=== PATIENT | female | born 1995 | race Caucasian/White ===

== ENCOUNTER 2016-11-07 11:10 | Outpatient (CLI) | payer BC ==
[~2016-11-07] VITALS: Ht 160 cm; Wt 92.9 kg
[~2016-11-07 11:10] MED LIST: PREN-39 PO
[2016-11-07 11:34] VITALS: Ht 160 cm; Wt 92.9 kg
--- NOTE | 2016-11-07 12:32 | RADRPT ---
PROCEDURE: US OB biophysical profile. CLINICAL INDICATION: decreased movements, post dates TECHNIQUE: Multiple sonographic images of the pelvis were obtained. The images were reviewed on a PACS workstation. COMPARISON: No prior studies are available for comparison. FINDINGS: There is a single viable intrauterine gestation. Cardiac activity is present with 137 beats per min diane. There is a vertex presentation. The placenta is anterior. There is no evidence of placental abruption. There is a normal amount of amniotic fluid with an MINAL = 12.9 cm. Biophysical profile: movement 2/2 tone 2/2. breathing 2/2 MINAL 2/2 Total 09/26 RPTAT: AA . IMPRESSION: Normal biophysical profile. . .Angel Watson MD, Date Time Electronically viewed and signed by .Angel Watson MD, MD on 11/07/2016 12:31 .S/
--- NOTE | 2016-11-07 12:33 | RADRPT ---
PROCEDURE: US OB. CLINICAL INDICATION: Size and dates , post dates TECHNIQUE: Multiple sonographic images of the pelvis and gravid uterus were obtained. The images were reviewed on a PACS workstation. COMPARISON: No prior studies are available for comparison. FINDINGS: There is a single viable intrauterine gestation. Cardiac activity is present with 144 beats per min diane. There is a vertex presentation. The placenta is anterior. There is no evidence of placental abruption. There is a normal amount of amniotic fluid with an MINAL = 12.9 cm. Measurements were made in order to determine age. The results are as follows: BPD =8.6 cm HC =32.6 cm AC =35.2 cm FL =7.3 cm Estimated gestational age of approximately 37 weeks and 0 days based on ultrasound measurements. Clinical age: 40 weeks and 1 day. The estimated date of delivery is 11/28/16, based on ultrasound measurements. The EFW = 3320 g, 24.2%, based on LMP age. RPTAT: AA IMPRESSION: Single viable intrauterine gestation of approximately 37 weeks and 0 days based on ultrasound measu rements. .Angel Watson MD, Date Time Electronically viewed and signed by .Angel Watson MD, on 11/07/2016 12:33 .S/
--- NOTE | 2016-11-07 13:14 | PN ---
Triage Information Date/Time Reason for visit: post date Weeks of Gestation 40 weeks and 1 day /Para Diabetes: none Hypertention: none Objective Heart Rate: 120's Heart Rate Comments Category I Exam Cervix closed Results/Medications Imaging Results [facility] [place] 09/26 Disposition: Discharge Assessment/Plan Antepartum Testing reassuring D/C home Follow up on 11/10/2016. CHADD DENT MD Nov 07, 2016 13:14
== END 2016-11-07 13:19 | disposition home or self-care (01) ==
LOC: L-D 11:10 → OBT 11:10
PROVIDERS: ATTEND Obstetrics & Gynecology
DX: O48.0 Post-term pregnancy (principal); Z3A.40 40 weeks gestation of pregnancy
CPT/HCPCS: 76815; 76818; G0463

== ENCOUNTER 2016-11-11 08:04 | Inpatient (IN) | payer BC ==
[~2016-11-11] VITALS: Ht 157.5 cm; Wt 92.5 kg
[2016-11-11 08:26] VITALS: BP 112/71; PULSE 103; RESP 18; Ht 157.5 cm; Wt 92.5 kg
--- NOTE | 2016-11-11 08:44 | TRIAGE ---
OB Triage Datetime Report Generated by CPN: 11/11/2016 08:43 Datetime: 11/11/2016 08:37 Vaginal Exam Dilatation (cms): 1.0 Effacement (%): 50 Station: -2 Exam By: naun Vaginal Bleeding: Normal Show Pool: Positive Nitrazine: Positive Cervix, Consistency: Moderate Cervix, Position: Midposition Datetime: 11/11/2016 08:24 Assessment Type: Triage Maternal Assessment Level of Consciousness: Fully Conscious DTR's/Clonus: DTRs 2+; No Clonus Headache: Denies Blurred Vision: No Respiratory Effort: Unlabored; Regular Rhythm; Equal Expansion Breath Sounds, Left: Clear and Equal Breath Sounds, Right: Clear and Equal Nausea/Vomiting: Denies RUQ Epigastric Pain: Denies Lower Extremities Edema: None Degree: None Upper Extremities Edema: None Degree: None Facial Edema: None Fall Risk Assessment History of Falling: (0) No Secondary Diagnosis: (0) No Ambulatory Aid: (0) Bedrest/Nurse Assist IV Therapy: (0) No Gait: (0) Normal/Bedrest/Immobile Mental Status: (0) Oriented to Own Ability Fall Score: 0 Fall Risk Score Definition: No Risk: No action required Datetime: 11/11/2016 08:23 Time of Arrival: 11/11/2016 07:57 EGA: 40.5 Arrived By: Ambulatory Arrived From: Home Movement: Present Contractions: Denies/Absent Rupture of Membranes: Unsure Vaginal Bleeding: Scant Vaginal Discharge: Denies Recent Sexual Intercouse: Denies Abdominal Trauma: Not Applicable Patient Complaints: None Time Provider Notified: 11/11/2016 08:40 Provider Notified: DELSHAD Initial Plan: SVE, Datetime: 11/11/2016 08:20 Monitor Mode: External Monitor Mode: External US Datetime: 11/07/2016 13:06 Stage of : OB Triage Datetime: 11/07/2016 12:56 Labor Evaluation Frequency: 0 Monitor Mode: External Resting Tone Roy: Relaxed Heart Rate FHR Baseline Rate: 135 Monitor Mode: External US Variability: Moderate 6-25 bpm Accelerations: 10X10 Decelerations: None Category: Category I Pain Assessment Pain Scale: 0 Pain Presence: None/Denies Pain Type: N/A Pain Goal: 3 Pain Relief Measures: Comfort Measures Datetime: 11/07/2016 11:36 Stage of : OB Triage Assessment Type: Triage Maternal Assessment Level of Consciousness: Fully Conscious DTR's/Clonus: DTRs 2+; No Clonus Headache: Denies Blurred Vision: No Respiratory Effort: Unlabored; Regular Rhythm; Equal Expansion Breath Sounds, Left: Clear and Equal Breath Sounds, Right: Clear and Equal Nausea/Vomiting: Denies RUQ Epigastric Pain: Denies Facial Edema: None Temperature Route: Axillary Fall Risk Assessment History of Falling: (0) No Secondary Diagnosis: (0) No Ambulatory Aid: (0) Bedrest/Nurse Assist IV Therapy: (0) No Gait: (0) Normal/Bedrest/Immobile Mental Status: (0) Oriented to Own Ability Fall Score: 0 Fall Risk Score Definition: No Risk: No action required Labor Evaluation Frequency: 0 Monitor Mode: External Pattern: Normal: <= 5 Contractions in 10 Minutes Resting Tone Roy: Relaxed Heart Rate FHR Baseline Rate: 145 Monitor Mode: External US Variability: Moderate 6-25 bpm Decelerations: None Category: Category I Pain Assessment Pain Scale: 0 Pain Presence: None/Denies Pain Type: N/A Datetime: 11/07/2016 11:35 Time of Arrival: 11/07/2016 11:00 EGA: 40.1 Arrived By: Ambulatory Arrived From: Home Chief Complaint: sent in from office for post dates, bpp/efw Movement: Present Contractions: Denies/Absent Rupture of Membranes: Denies Vaginal Bleeding: None Vaginal Discharge: Denies Recent Sexual Intercouse: Denies Abdominal Trauma: Not Applicable Patient Complaints: None Time Provider Notified: 11/07/2016 13:06 Provider Notified: FILIPE Initial Plan: monitor, bpp/efw
[2016-11-11] MEDS ORDERED: LACTATED RINGER'S 1,000 ML IV PRN (09:51)
[2016-11-11] MEDS: LACTATED RINGER'S 1,000 ML IV SCH ×3 (09:55→20:10)
[2016-11-11] MEDS ORDERED: OXYTOCIN 30 UNITS/LR 500 ML IV SCH (10:00)
[2016-11-11] MEDS ORDERED: IBUPROFEN 600 MG TAB PO PRN (10:00)
[2016-11-11] MEDS ORDERED: LIDOCAINE 1% (MPF) 30 ML INJ INJ PRN (10:00)
[2016-11-11] MEDS ORDERED: OXYTOCIN 30 UNITS/LR 500 ML IV PRN (10:00)
[2016-11-11] MEDS ORDERED: CARBOPROST 250 MCG INJ IM PRN (10:00)
[2016-11-11] MEDS ORDERED: MISOPROSTOL 200 MCG TAB PR PRN (10:00)
[2016-11-11] MEDS ORDERED: BUTORPHANOL 2 MG INJ IV PRN (10:00)
[2016-11-11] MEDS ORDERED: METHYLERGONOVINE 0.2 MG INJ IM PRN (10:00)
[2016-11-11 10:04] LABS: BASOPHILS % 0.2 % (0.0-2.0); EOSINOPHILS # 0.1 10^3/ul (0.0-0.5); EOSINOPHILS % 0.7 % (0.0-7.0); HEMATOCRIT 40.1 % (37.0-47.0); HEMOGLOBIN 13.7 g/dl (12.0-16.0); LYMPHOCYTES # 1.7 10^3/ul (0.8-2.9); MEAN CORPUSCULAR HEMOGLOBIN 29.5 pg (29.0-33.0); MEAN CORPUSCULAR HGB CONC 34.2 g/dl (32.0-37.0); MEAN CORPUSCULAR VOLUME 86.2 fl (82.0-101.0); MONOCYTE # 0.5 10^3/ul (0.3-0.9); MONOCYTES % 5.7 % (0.0-11.0); NEUTROPHILS % 72.9 % (39.0-77.0); PLATELET COUNT 196 10^3/UL (140-415); RED BLOOD COUNT 4.65 10^6/ul (4.20-5.40); RED CELL DISTRIBUTION WIDTH 13.2 % (11.5-14.5); WHITE BLOOD COUNT 8.3 10^3/ul (4.8-10.8)
[2016-11-11 10:15] LABS: INR 0.86; PARTIAL THROMBOPLASTIN TIME 27.6 Sec (25.0-35.0); PROTIME 11.7 Sec (12.2-14.2); PT RATIO 0.9
--- NOTE | 2016-11-11 10:56 | RADRPT ---
PROCEDURE: Obstetrical ultrasound CLINICAL INDICATION: . OB ultrasound with fluid volume assessment. TECHNIQUE: Obstetrical ultrasound of the uterus for fluid volume assessment. Transabdomi nal imaging of the uterus was performed. COMPARISON: 11/07/2016 FINDINGS: Presentation: Cephalic Partially visualized placenta: anterior heart rate: 124 Beats per minute. IMPRESSION: New oligohydramnios with amniotic fluid index 4.95 cm. Previously 12.87 cm RPTAT: AADD .Deng Jara MD, Date Time Electronically viewed and signed by .Deng Jara MD, on 11/11/2016 10:56 .B/
[2016-11-11] MEDS ORDERED: NALOXONE (0.4 MG/ML) INJ IV PRN (18:30)
[2016-11-11] MEDS ORDERED: DIPHENHYDRAMINE 50 MG INJ IV PRN (18:30)
[2016-11-11] MEDS ORDERED: ONDANSETRON 4 MG INJ IV PRN (18:30)
[2016-11-11] MEDS ORDERED: FENTAnyl 2MCG/ML-ROPIV 0.2% 100 ML ONE (18:33)
[2016-11-11] MEDS: FENTAnyl 2MCG/ML-ROPIV 0.2% 100 ML BAG EPI SCH (19:02)
[2016-11-12] MEDS: LACTATED RINGER'S 1,000 ML IV SCH ×2 (03:32→06:22)
[2016-11-12] MEDS: FENTAnyl 2MCG/ML-ROPIV 0.2% 100 ML BAG EPI SCH (04:59)
--- NOTE | 2016-11-12 10:54 | HP ---
Date/Time of Note Date/Time of Note DATE: 11/12/16 TIME: 10:51 OB - History Hx of Present Chief Complaint: leakage of fluid and contractions Estimated Due Date: Nov 06, 2016 : 2 Para: 1 Spontaneous : 0 Therapeutic : 0 Care: Good Care Ultrasounds: Normal mid trimester US Obstetrical Complications: None Medical Complications: None Past Family/Social History * Past Medical, Surgical, Family and Obstetric Histories reviewed from chart. GBS Status: Negative OB Admission Exam Vital Signs Vital Signs Vital Signs Date Time Temp Pulse Resp B/P Pulse Ox O2 Delivery O2 Flow Rate FiO2 11/11/16 08:26 98.4 103 18 112/71 98 Room Air Physical Exam HEENT: WNL Heart: Rhythm Normal Lungs: Clear, Equal Abdomen: WNL Extremities: Normal Reflexes: Normal Cervical Dilatation: 3cm Effacement: 75% Station: -1 Membranes: Ruptured Amniotic Fluid: Clear Heart Rate: 120's Accelerations: Accelerations Present Varibility: Moderate Last 72 hours Lab Results CBC & BMP 11/11/16 09:23 OB Assessment/Plan Reason for admission: active labor Plan: Expectant Management CHADD DENT MD Nov 12, 2016 10:54
[2016-11-12] MEDS: OXYTOCIN 30 UNITS/LR 500 ML IV SCH (11:37)
--- NOTE | 2016-11-12 11:42 | LDN ---
Date/Time of Note Date/Time of Note DATE: 11/12/16 TIME: 11:38 Delivery Summary Weeks of Gestation 40 weeks and 6 days Placenta Delivered: Spontaneously Meconium: Light Episiotomy: No Perineal laceration: 1 Laceration repair: Vaginal laceration repaired with 3-0 Vicryl Anesthesia type: Epidural Estimated blood loss: 300 Sponge & Needle done & correct: Yes All needle counts correct: Yes Any foreign bodies felt in the: No Problems: Delivery Information Sex Infant Sex: female Apgars 1 Minute: 9 5 Minute: 9 Suctioning Nose & mouth suctioned at naun: Yes Delee suction performed: No Umbilical Cord Umbilical cord with: 3 Vessels Cord presentations: no nuchal cord Cord Blood was obtained: Yes Mother & Baby Disposition Disposition Mom & Baby to Maternity; Good: Yes CHADD DENT MD Nov 12, 2016 11:41
[2016-11-12 12:50] VITALS: BP 116/66; PULSE 82; RESP 18
[2016-11-12] MEDS ORDERED: LACTATED RINGER'S 1,000 ML IV* SCH (13:07)
[2016-11-12 13:15] VITALS: BP 115/58; PULSE 90; RESP 18
[2016-11-12] MEDS ORDERED: MISOPROSTOL 200 MCG TAB PR PRN (13:30)
[2016-11-12] MEDS ORDERED: WITCH HAZEL/GLYCERIN PAD PR PRN (13:30)
[2016-11-12] MEDS ORDERED: DIBUCAINE 1% 30 GM OINT TOP PRN (13:30)
[2016-11-12] MEDS ORDERED: LANOLIN 7 GM TUBE TOP PRN (13:30)
[2016-11-12] MEDS ORDERED: HYDROCODONE/APAP (5/325) TAB PO PRN (13:30)
[2016-11-12] MEDS ORDERED: CARBOPROST 250 MCG INJ IM PRN (13:30)
[2016-11-12] MEDS ORDERED: OXYTOCIN 30 UNITS/LR 500 ML IV PRN (13:30)
[2016-11-12] MEDS ORDERED: ACETAMINOPHEN 325 MG TAB PO PRN (13:30)
[2016-11-12] MEDS ORDERED: BENZOCAINE 20% 56 ML SPRAY TOP PRN (13:30)
[2016-11-12] MEDS ORDERED: METHYLERGONOVINE 0.2 MG INJ IM PRN (13:30)
[2016-11-12 16:00] VITALS: BP 110/69; PULSE 58; RESP 18
[2016-11-12] MEDS: IBUPROFEN 600 MG TAB PO SCH (17:33)
[2016-11-12 20:30] VITALS: BP 116/75; PULSE 82; RESP 16
[2016-11-12] MEDS: SENNA/DOCUSATE NA (8.6MG/50MG) TAB PO SCH (20:35)
[2016-11-12] MEDS ORDERED: INFLUENZA VIRUS VACCINE 0.5 ML SYG IM* ONE (21:00)
[2016-11-13] MEDS: IBUPROFEN 600 MG TAB PO SCH ×4 (00:42→17:30)
[2016-11-13 00:45] VITALS: BP 104/70; PULSE 75; RESP 16
[2016-11-13 04:50] VITALS: BP 103/58; PULSE 72; RESP 16
[2016-11-13 08:20] VITALS: BP 106/62; PULSE 83; RESP 18
[2016-11-13] MEDS: SENNA/DOCUSATE NA (8.6MG/50MG) TAB PO SCH ×2 (08:52→21:13)
[2016-11-13] MEDS ORDERED: INFLUENZA VIRUS VACCINE 0.5 ML (DISPENSING) IM* ONE (09:00)
[2016-11-13 09:57] LABS: BASOPHILS % 0.3 % (0.0-2.0); EOSINOPHILS # 0.2 10^3/ul (0.0-0.5); EOSINOPHILS % 2.2 % (0.0-7.0); HEMATOCRIT 35.9 % (37.0-47.0); HEMOGLOBIN 12.3 g/dl (12.0-16.0); LYMPHOCYTES # 1.4 10^3/ul (0.8-2.9); LYMPHOCYTES % 17.2 % (15.0-51.0); MEAN CORPUSCULAR HEMOGLOBIN 30.1 pg (29.0-33.0); MEAN CORPUSCULAR HGB CONC 34.3 g/dl (32.0-37.0); MEAN PLATELET VOLUME 10.5 fl (7.4-10.4); MONOCYTE # 0.4 10^3/ul (0.3-0.9); MONOCYTES % 5.4 % (0.0-11.0); NEUTROPHIL # 5.9 10^3/ul (1.6-7.5); NEUTROPHILS % 74.5 % (39.0-77.0); PLATELET COUNT 169 10^3/UL (140-415); RED BLOOD COUNT 4.08 10^6/ul (4.20-5.40); RED CELL DISTRIBUTION WIDTH 13.4 % (11.5-14.5); WHITE BLOOD COUNT 7.8 10^3/ul (4.8-10.8)
[2016-11-13 15:24] VITALS: BP 104/59; PULSE 70; RESP 18
[2016-11-13 20:15] VITALS: BP 119/78; PULSE 77; RESP 18
--- NOTE | 2016-11-13 20:59 | QN ---
Documentation Comment No complaint Afebrile VSS Fundus Firm Lochia scant PPD #1 Stable Continue present care. CHADD DENT MD Nov 13, 2016 20:59
[2016-11-14] MEDS: IBUPROFEN 600 MG TAB PO SCH ×3 (00:02→11:19)
[2016-11-14 04:16] VITALS: BP 95/52; PULSE 75; RESP 18
[2016-11-14 07:44] VITALS: BP 116/70; PULSE 81; RESP 18
[2016-11-14] MEDS: SENNA/DOCUSATE NA (8.6MG/50MG) TAB PO SCH (08:44)
[2016-11-14] MEDS ORDERED: DIPHTH/TET/ACEL PERTUSS (ADULT) 0.5 ML VIAL IM* ONE (09:00)
--- NOTE | 2016-11-14 11:45 | DS ---
Date/Time of Note Date/Time of Note DATE: 11/14/16 TIME: 11:44 Obstetrical Discharge Record Final Diagnosis Final Diagnosis: Term delivered Vaginal Delivery Obstetrical Delivery: Spontaneous Condition on Discharge Physical Assessment Voiding: Yes Bowel Movement: Yes Breast: Soft, non-tender, Filling Fundus: Firm Calf Tenderness: No Patient Condition: Stable CHADD DENT MD Nov 14, 2016 11:45
== END 2016-11-14 17:00 | disposition home or self-care (01) | DRG 775 ==
LOC: OBT 08:04 → L-D 08:05 → OBT 08:40 → L-D 08:40 → PP1 11-12 12:55
PROVIDERS: ADMIT Obstetrics & Gynecology; ATTEND Obstetrics & Gynecology
PROC: 10E0XZZ Delivery of Products of Conception, External Approach (ICD-10-PCS; principal; 2016-11-11)
PROC: 0HQ9XZZ Repair Perineum Skin, External Approach (ICD-10-PCS; 2016-11-11)
PROC: 3E033VJ Introduction of Other Hormone into Peripheral Vein, Percutaneous Approach (ICD-10-PCS; 2016-11-11)
DX: O71.4 Obstetric high vaginal laceration alone (principal); O48.0 Post-term pregnancy; Z3A.40 40 weeks gestation of pregnancy; Z37.0 Single live birth
CPT/HCPCS: 62319; 76815; 85025; 85610; 85730; 86592; 86900; 86901; 87340; 90686; 90715; 99464; G0463; J3010; J7120